=== PATIENT | female | born 1950 | race Caucasian/White ===

== ENCOUNTER 2016-06-22 08:00 | Outpatient (CLI) | payer MEDICAID | END 2016-06-22 23:59 | disposition home or self-care (01) | LOC: D.MRI 08:00 | DX: M54.5 Low back pain (principal) ==

== ENCOUNTER → 2020-07-28 10:26 | Outpatient (CLI) | payer MEDICARE, OTHER | END | disposition home or self-care (01) | LOC: D.US 10:00 | PROVIDERS: ATTEND Family Medicine | DX: E04.1 Nontoxic single thyroid nodule (principal) ==